=== PATIENT | male | born 1950 | race Caucasian/White ===

== ENCOUNTER 2017-03-16 09:21 | Emergency (ER) | payer MEDICARE ==
[2017-03-16] MEDS ORDERED: Fentanyl 100 MCG/2 ML VIAL ONE (09:36)
[2017-03-16 09:55] LABS: #Basophils 0.1 thou/uL (0.0-0.2); #Eosinphils 0.1 thou/uL (0.0-0.7); #Lymphocytes 1.2 thou/uL (1.20-3.40); #Monocytes 0.6 thou/uL (0.11-0.59); #Neutrophils 6.8 thou/uL (1.40-6.50); %Basophils 0.8 % (0.0-1.0); %Eosinophils 1.4 % (0.0-10.0); %Lymphocytes 13.7 % (21.0-51.0); %Neutrophils 77.1 % (42.0-75.0); Hemoglobin 14.9 g/dL (14.0-18.0); Mean Corpuscular HGB CONC 34.1 g/dL (32.0-36.0); Mean Corpuscular Hemoglobin 29.6 pg (27.0-31.0); Mean Corpuscular Volume 86.9 fl (80.0-94.0); Platelet Count 187 thou/uL (130-400); RBC Distribution Width 12.1 % (11.5-14.5); Red Blood Cell (RBC) Count 5.05 mill/uL (4.70-6.10); White Blood Cell (WBC) Count 8.8 thou/uL (4.8-10.8)
[2017-03-16 10:08] LABS: ALT (SGPT) 21 U/L (8-55); AST (SGOT) 17 U/L (5-34); Albumin 3.8 g/dL (3.4-4.8); Alkaline Phosphatase 81 U/L (40-150); Anion Gap 13 mmol/L (10-20); BUN (Urea Nitrogen) 17 mg/dL (8.4-25.7); Bilirubin, Total 0.8 mg/dL (0.2-1.2); Calc. Creatinine Clearance 0 mL/min (70-130); Calcium 8.7 mg/dL (7.8-10.44); Carbon Dioxide 25 mmol/L (23-31); Chloride 107 mmol/L (98-107); Estimated GFR-MDRD 67; Glucose 97 mg/dL (80-115); Potassium 4.1 mmol/L (3.5-5.1); Protein, Total 6.8 g/dL (5.8-8.1); Sodium 141 mmol/L (136-145)
[2017-03-16 10:21] LABS: Bilirubin Negative (Negative); Blood, Urine Negative (Negative); Clarity Clear (Clear); Glucose, Urine (Dipstick) Negative (Negative); Leukocyte Negative (Negative); Nitrite Negative (Negative); Protein, Urine (Dipstick) Negative (Neg-Trace); Specific Gravity, Urine 1.015 (1.005-1.030); Urobilinogen 0.2 mg/dL (0.2-1.0)
[2017-03-16] MEDS ORDERED: Sodium Chloride 0.9% 100 ML ONE (11:46)
[2017-03-16] MEDS ORDERED: Piperacillin/Tazobactam 3.375 GM VIAL ONE (11:46)
[2017-03-16] MEDS ORDERED: Ketorolac Tromethamine 30 MG/ML VIAL ONE (11:46)
--- NOTE | 2017-03-16 13:34 | CT ---
CT ABDOMEN AND PELVIS WITH CONTRAST: Date: 03/16/[address] of the abdomen and pelvis was performed for evaluation of lower abdominal pain. Axial slic es were acquired after giving oral and IV contrast. Coronal reconstructions were then done. FINDINGS: The lung bases are clear. The liver is normal in size. A few subcentimeter cystic areas are seen in the liver and are probably of no real importance. The gallbladder is somewhat generous size at 9.4 c m in length. I cannot confirm any stones, but ultrasound would be much more sensitive to such. The spleen, pancreas, adrenal glands, kidneys, and abdominal aorta showed no acute findings. There is extensive diverticulosis involving the sigmoid colon. There are several areas where there i s a small amount of pericolonic streaking here that probably represents early diverticulitis. No dany e fluid, free air, or abscess was seen. CT of the pelvis was remarkable only for the findings listed above. No pelvic mass or free fluid was seen. A degenerated disc is present at L5-S1. Minor degenerative changes are seen elsewhere. IMPRESSION: Findings suggestive of very early sigmoid diverticulitis. POS: HOME
== END 2017-03-16 12:35 | disposition home or self-care (01) ==
LOC: BURERS 09:21
DX: K57.32 Diverticulitis of large intestine without perforation or abscess without bleeding (principal); E03.9 Hypothyroidism, unspecified; I10 Essential (primary) hypertension; Z79.899 Other long term (current) drug therapy
CPT/HCPCS: 74177; 80053; 81003; 85025; 94760; 96365; 96367; 96375; J1885; J2543; J3010; J7050